=== PATIENT | female | born 1990 | race Caucasian/White ===

== ENCOUNTER 2021-03-18 04:02 | Observation (INO) | payer SELFPAY ==
[~2021-03-18] VITALS: Ht 157.5 cm; Wt 72.6 kg
[2021-03-18] MEDS ORDERED: Budeprion Xl300 MG PO ×2 (04:34→04:35)
[2021-03-18] MEDS ORDERED: ONE DAILY WOME1 EAC2 PO (04:35)
[2021-03-18 05:18] LABS: BASOPHILS ABSOLUTE AUTO 0.04 K/mm3 (0.00-0.23); BASOPHILS PERCENT AUTO 0 % (0-2); EOSINOPHILS ABSOLUTE AUTO 0.01 K/mm3 (0.00-0.68); EOSINOPHILS PERCENT AUTO 0 % (0-6); Hematocrit 39.7 % (33.0-51.0); Hemoglobin 13.7 g/dL (11.5-16.0); IMMATURE GRAN ABSOLUTE AUTO 0.07 K/mm3 (0.00-0.10); IMMATURE GRAN PERCENT AUTO 0 % (0-1); LYMPHOCYTES ABSOLUTE AUTO 1.16 K/mm3 (0.84-5.20); LYMPHOCYTES PERCENT AUTO 6 % (21-46); MONOCYTES ABSOLUTE AUTO 0.81 K/mm3 (0.16-1.47); MONOCYTES PERCENT AUTO 4 % (4-13); Mean Corpuscular HGB 31.5 pg (26.0-34.0); Mean Corpuscular HGB Conc 34.5 g/dL (31.5-36.5); Mean Corpuscular Volume 91 fL (80-100); Mean Platelet Volume 10.5 fL (9.1-12.4); NEUTROPHILS ABSOLUTE AUTO 16.85 K/mm3 (1.96-9.15); NEUTROPHILS PERCENT AUTO 89 % (41-73); Platelet Count 297 K/mm3 (150-400); RDW Coefficient Variation 11.5 % (11.7-14.2); RDW Standard Deviation 38.6 fL (35.1-46.3); Red Blood Cell Count 4.35 M/mm3 (3.80-5.20); White Blood Cell Count 18.94 K/mm3 (4.00-11.30)
[2021-03-18 05:58] LABS: Alanine Aminotransfer (ALT/SGP 18 U/L (12-78); Albumin, Blood 4.2 g/dL (3.4-5.0); Albumin/Globulin Ratio 1.1 (0.8-1.8); Alk Phos 60 U/L (50-136); Anion Gap 9 mmol/L (6-16); Aspartate Aminotrans (AST/SGOT 7 U/L (12-37); Bilirubin, Total 0.7 mg/dL (0.1-1.0); Blood Urea Nitrogen 12 mg/dL (8-24); Bun/Creatinine Ratio 13.7 (12.0-20.0); CO2, Blood 24 mmol/L (21-32); Chloride, Blood 105 mmol/L (98-108); Creatinine, Blood 0.88 mg/dL (0.40-1.00); Globulin, Blood 3.7 g/dL (2.2-4.0); Glomerular Filtration Rate >60 (60-); Glucose, Blood 118 mg/dL (70-99); Sodium, Blood 138 mmol/L (136-145); Total Protein, Blood 7.9 g/dL (6.4-8.2)
[2021-03-18 06:08] LABS: Source, Urine Clean Catch
[2021-03-18 06:27] LABS: Appearance, Urine Clear (Clear); Bilirubin, Urine Neg (Neg); Blood, Urine Neg (Neg); Color, Urine Yellow (P-Yellow); Glucose Qualitative, Urine Neg (Neg); Ketones, Urine 4+ (Neg); Leukocyte Esterase, Urine Neg (Neg); Nitrite, Urine Neg (Neg); Protein, Urine Neg (Neg); Urobilinogen, Urine NORM (Normal); pH, Urine 6.5 (5.0-8.0)
[2021-03-18 08:29] LABS: International Normalized Ratio 1.01; Prothrombin Time Results 10.6 Sec (9.7-11.5)
[2021-03-18 09:41] LABS: Influenza A, PCR NEGATIVE (NEGATIVE); Influenza B, PCR NEGATIVE (NEGATIVE); Resp Syncytial Virus, PCR NEGATIVE (NEGATIVE); SARS-Cov-2 (COVID-19) PCR, MMC NEGATIVE (NEGATIVE)
--- NOTE | 2021-03-18 10:19 | NUR ---
PT ARRIVED TO UNIT VIA GURNEY, TRANSFERED SELF TO BED WITH SLIGHT INCREASE IN PAIN. PT REPORTS THAT IT SUBSIDES QUICKLY TO A TOLERABLE LEVEL. SHE REPORTS FEELING VERY ANXIOUS RELATED TO SURGERY. SHE HAS BEEN NPO SINCE 6PM AND DENIES NAUSEA. CALL LIGHT IN REACH. ORIENTED TO UNIT.
--- NOTE | 2021-03-18 12:20 | NUR ---
PT OUT OF ROOM FOR PROCEDURE AT THIS TIME.
--- NOTE | 2021-03-18 15:52 | NUR ---
PT RETURNED FROM SURGERY. 3 LAP SITES COVERED WITH GAUZE, CDI AT THIS TIME. PT IS TOLERATING PO CURRENTLY. DENIES NAUSEA. VERY PAINFUL AND TEARFUL TO TOUCH, REPORTS TOLERABLE WHEN NOT MOVING OR MOVING SLOWLY. EDUCATED PATIENT ON DEEP BREATHING AND SPLINTING ABDOMEN WITH COUGHING OR DEEP BREATHING.
[2021-03-18] MEDS ORDERED: HYDR1TAB94 PO (17:21)
--- NOTE | 2021-03-18 18:37 | NUR ---
DISCHARGE PT LEFT AT 1815 WITH BROTHER VIA WHEELCHAIR. SCRIPT SENT WITH FAMILY PRIOR TO DISCHARGE PER PT REQUEST. PT PASSING FLATUS, TOLERATING REGULAR DIET. DENIES NAUSEA. PAIN MANAGED PER EMAR WITH ORAL PAIN MEDICATIONS. REPORTS IMPROVED WITH AMBULATION. SPLINTING ABDOMEN PATIENT TAKING DEEP BREATHS. DISCHARGE INSTRUCTIONS GONE OVER WITH PATIENT, DENIED FURTHER QUESTIONS.
== END 2021-03-18 18:29 | disposition home or self-care (01) ==
LOC: ER 04:02 → SURS 04:03 → ER 07:33 → SURS 07:33
PROVIDERS: Student in an Organized Health Care Education/Training Program; ADMIT Surgery
PROC: 0DTJ4ZZ Resection of Appendix, Percutaneous Endoscopic Approach (ICD-10-PCS; principal; 2021-03-18 11:30)
DX: K35.80 Unspecified acute appendicitis (principal); Z20.822 Contact with and (suspected) exposure to COVID-19; Z88.8 Allergy status to other drugs, medicaments and biological substances; Z79.899 Other long term (current) drug therapy; Z88.1 Allergy status to other antibiotic agents
CPT/HCPCS: 0241U; 74177; 80053; 81003; 81025; 83690; 85025; 85610; 85730; 86850; 86900; 86901; 88304; 96374; 96375; 99285-25; A9270; J1100; J2060; J2250; J2270; J2370; J2405; J2543; J2704; J3010; J7120; Q9967

== ENCOUNTER → 2023-01-26 | Outpatient (CLI) | payer BC ==
[~2023-01-26] MED LIST: Budeprion Xl300 MG PO; HYDR1TAB94 PO; ONE DAILY WOME1 EAC2 PO
[2023-01-26 11:51] LABS: BASOPHILS ABSOLUTE AUTO 0.02 K/mm3 (0.00-0.23); BASOPHILS PERCENT AUTO 1 % (0-2); EOSINOPHILS ABSOLUTE AUTO 0.02 K/mm3 (0.00-0.68); EOSINOPHILS PERCENT AUTO 1 % (0-6); Hematocrit 37.6 % (33.0-51.0); Hemoglobin 12.8 g/dL (11.5-16.0); IMMATURE GRAN PERCENT AUTO 0 % (0-1); LYMPHOCYTES PERCENT AUTO 33 % (21-46); MONOCYTES ABSOLUTE AUTO 0.22 K/mm3 (0.16-1.47); MONOCYTES PERCENT AUTO 6 % (4-13); Mean Corpuscular HGB 31.8 pg (26.0-34.0); Mean Corpuscular Volume 93 fL (80-100); NEUTROPHILS ABSOLUTE AUTO 2.23 K/mm3 (1.96-9.15); NEUTROPHILS PERCENT AUTO 61 % (41-73); Platelet Count 209 K/mm3 (150-400); RDW Coefficient Variation 11.6 % (11.7-14.2); RDW Standard Deviation 39.7 fL (35.1-46.3); Red Blood Cell Count 4.03 M/mm3 (3.80-5.20); White Blood Cell Count 3.69 K/mm3 (4.00-11.30)
[2023-01-26 12:03] LABS: Albumin, Blood 3.7 g/dL (3.4-5.0); Albumin/Globulin Ratio 1.1 (0.8-1.8); Bilirubin, Total 0.4 mg/dL (0.1-1.0); Bun/Creatinine Ratio 11.2 (12.0-20.0); C-Reactive Protein, High Sens. 2.75 mg/L (0.000-3.000); Calcium, Blood 8.5 mg/dL (8.5-10.1); Creatinine, Blood 0.89 mg/dL (0.40-1.00); Globulin, Blood 3.4 g/dL (2.2-4.0); Potassium, Blood 3.9 mmol/L (3.5-5.5); Total Protein, Blood 7.1 g/dL (6.4-8.2)
== END ==
LOC: LAB 11:00 → LAB SHORT 11:00
PROVIDERS: Physician Assistant
DX: R07.89 Other chest pain (principal)
CPT/HCPCS: 80053; 85025; 86141